=== PATIENT | male | born 1980 | race Caucasian/White ===

== ENCOUNTER 2024-08-15 21:09 | Inpatient (IN) ==
--- NOTE | 2024-08-15 21:33 | Emergency Department Note ---
History of Present Illness General Chief complaint: Illness Stated complaint: ORAL PAIN,FACE SWOLLEN,N/V,DIZZY,CONFUSION Time Seen by Provider: 08/15/24 21:19 History of Present Illness Maximum Pain Intensity: 8 This is a 44-year-old male presenting to the emergency department for evaluation of right-sided facial pain and swelling. Patient was seen earlier today for likely dental/oral infection. He was started on penicillin and given tramadol. Patient has taken 2 doses of the penicillin, but not any doses of the tramadol. Patient states over the past 2 to 3 hours he has developed significant swelling to the face and is having difficulty swallowing because of the pain. He has not had fever or chills. He rates his discomfort an 8/10. Home Medications Medication Instructions Recorded Confirmed Type cyclobenzaprine 10 mg tablet 10 mg PO Q8H PRN muscle spasm #21 12/15/22 12/17/22 Rx tabs cholecalciferol (vitamin D3) 125 125 mcg PO DAILY #30 caps 12/17/22 12/17/22 Rx mcg (5,000 unit) capsule penicillin V potassium 500 mg 500 mg PO BID 10 days #20 tabs 08/15/24 Rx tablet tramadol 50 mg tablet 50 mg PO BID PRN pain #11 tabs 08/15/24 Rx Allergies Allergy/AdvReac Type Severity Reaction Status Date / Time bee venom protein (honey bee) Allergy Severe SEVERE Verified 12/17/22 08:30 SWELLING AT SITES--SEE COMMENT cat dander Allergy Intermediate ITCHY Verified 12/17/22 08:30 EYES, SNEEZING, CONGESTION Past Med/Surg History Problem List (Updated 08/16/24 @ 04:04 by Cory Tomas PA-C) Dental abscess (Acute) Pain, dental (Acute) Foot pain, bilateral Athletes foot Hypertriglyceridemia Positive self-administered antigen test for COVID-19 Sinus infection Allergic rhinitis Unwanted fertility Sensorineural hearing loss (SNHL) of left ear with restricted hearing of right ear DDD (degenerative disc disease), lumbar Low back pain Shoulder pain, right FH ischemic heart disease Routine health maintenance Encounter for vasectomy counseling Hearing loss Lower back injury Obesity Medical History Hx of bronchitis 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 Surgical History History of hernia surgery Family History Mother Diabetes Coronary heart disease Dyslipidemia Heart disease Hypertension Myocardial infarction Allergies Bleeding disorder Father Colorectal cancer Hearing loss Other No family history of adverse response to anesthesia Social History Smoking Status: Never smoker Do You Dip or Chew Tobacco: No; Hx Alcohol Use: No Hx Substance Use: No Preferred Language: Lithuanian 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 Beliefs That Will Affect Care: None marital status: Current Living Situation: Spouse current occupational status: employed 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 Feels Safe at Home: Yes Safety Concerns: Feels Safe At This Time Review of Systems A total of 10 systems reviewed and were otherwise negative Physical Exam Vital Signs Vital Signs - 24 hr 08/15/24 21:13 08/15/24 21:50 08/15/24 22:09 Temperature 36.7 C Temperature Source Temporal Artery Scan Pulse Rate 108 H 108 H 107 H Respiratory Rate 18 19 Blood Pressure 153/98 H 166/109 H Blood Pressure Mean 116 128 Pulse Oximetry 96 96 Sepsis Recent Fever Within 48 Hours No Sepsis New/Unexplained Change in Mental Status No Sepsis Action Taken by Nursing No Action Required 08/15/24 23:30 08/16/24 01:00 Temperature Temperature Source Pulse Rate 100 H 102 H Respiratory Rate 23 24 Blood Pressure 175/104 H 183/104 H Blood Pressure Mean 127 128 Pulse Oximetry 95 95 Sepsis Recent Fever Within 48 Hours Sepsis New/Unexplained Change in Mental Status Sepsis Action Taken by Nursing VITALS: Vitals are noted on the nurse's note and reviewed by myself. Vital signs stable. GENERAL: Well-developed, well-nourished, white male, who is moderately uncomfortable but overall pleasant HEAD: Normocephalic atraumatic. MOUTH: Mucous membranes moist. Tonsils are not enlarged. Dentition overall fair repair. There is notable edema to the right side face and submandible region. No gross abscess evident on exam. No distinct evidence of Bernardino's. NECK: Supple without nuchal rigidity. No lymphadenopathy. No thyromegaly. Cervical spine is nontender. HEART: Regular rate and rhythm without murmurs gallops or rubs. LUNGS: Clear to auscultation bilaterally without wheezes, rales or rhonchi. No retractions or accessory muscle use. Course Administered Medications Acetaminophen (Ofirmev) 1,000 mg in 100 mls @ 400 mls/hr IV Q8H PRN PRN Reason: Pain- 1st line Stop: 08/19/24 02:15 Last Infusion: 08/16/24 02:55 Dose: Infused Documented By: Admin: 08/16/24 02:40 Dose: 400 mls/hr Documented By: JAYDA Lactated Ringer's (Lr) 1,000 mls @ 125 mls/hr IV .Q8H DANAY Stop: 08/16/24 11:44 Last Admin: 08/16/24 02:40 Dose: 125 mls/hr Documented By: JAYDA Discontinued Medications Ampicillin Sodium/Sulbactam Sodium (Unasyn) 3,000 mg in 100 mls @ 200 mls/hr IV NOW STA Stop: 08/15/24 21:59 Last Infusion: 08/15/24 22:44 Dose: Infused Documented By: Admin: 08/15/24 22:08 Dose: 200 mls/hr Documented By: NICCI Sodium Chloride (Nss) 1,000 mls @ 999 mls/hr IV .Q1H1M DANAY Stop: 08/15/24 22:45 Last Infusion: 08/15/24 22:44 Dose: Infused Documented By: Admin: 08/15/24 21:52 Dose: 999 mls/hr Documented By: NICCI Acetaminophen (Ofirmev) 1,000 mg in 100 mls @ 400 mls/hr IV NOW STA Stop: 08/15/24 21:45 Last Infusion: 08/15/24 22:08 Dose: Infused Documented By: Admin: 08/15/24 21:52 Dose: 400 mls/hr Documented By: NICCI Sodium Chloride (Nss) 1,000 mls @ 999 mls/hr IV .Q1H1M DANAY Stop: 08/16/24 03:12 Last Admin: 08/16/24 02:31 Dose: Not Given Documented By: Infusion: 08/16/24 02:30 Dose: Infused Documented By: MLAna Admin: 08/16/24 01:19 Dose: 999 mls/hr Documented By: NICCI Ioversol (Optiray 320 100ml) 94 ml IV ONCE ONE Stop: 08/15/24 22:50 Last Admin: 08/15/24 22:49 Dose: 94 ml Documented By: YOVANI Ketorolac Tromethamine (Ketorolac 30 Mg/Ml Vial) 30 mg IV NOW STA Stop: 08/16/24 00:28 Last Admin: 08/16/24 00:39 Dose: 30 mg Documented By: NICCI Medical Decision Making Differential Diagnosis Differential diagnosis includes: Etiologies such as cellulitis, abscess, osteomyelitis, MRSA infection, DVT, necrotizing fasciitis, dermatitis, drug eruption, as well as others were entertained Laboratory Data 08/15/24 21:51 08/15/24 21:51 Lab Results 08/15/24 Range/Units 21:51 WBC 24.00 H (4.8-10.8) K/ul RBC 4.91 (4.70-6.10) M/uL Hgb 15.2 (14.0-18.0) g/dl Hct 42.5 (42.0-52.0) % MCV 86.6 (80.0-100.0) fL MCH 31.0 (25.0-34.0) pg MCHC 35.8 (32.0-36.0) g/dL RDW Std Deviation 40.0 (36.4-46.3) fL RDW Coeff of Joseph 12.7 (11.5-14.5) % Plt Count 288 (130-400) K/uL MPV 10.0 (9.4-12.4) fL Immature Gran % (Auto) 1.0 % Neut % (Auto) 89.3 % Lymph % (Auto) 3.4 % Labette % (Auto) 6.0 % Eos % (Auto) 0.1 % Baso % (Auto) 0.2 % Neut # (Auto) 21.46 H (1.40-6.50) K/uL Lymph # (Auto) 0.81 L (1.20-3.40) K/uL Labette # (Auto) 1.44 H (0.11-0.59) K/uL Eos # (Auto) 0.02 (0.00-0.50) K/uL Baso # (Auto) 0.04 (0.00-0.20) K/uL Immature Gran # (Auto) 0.23 H (0.01-0.20) K/uL Sodium 140 (136-145) mmol/L Potassium 4.3 (3.5-5.1) mmol/L Chloride 108 H (98-107) mmol/L Carbon Dioxide 22 (21-32) mmol/L Anion Gap 10 (3-11) BUN 13 (6-23) mg/dl Creatinine 1.17 (0.6-1.4) mg/dl Est Cr Clr Drug Dosing 92.9 ml/min Est GFR ( Amer) 87.4 ml/min Est GFR (Non-Af Amer) 75.4 ml/min BUN/Creatinine Ratio 11.1 (10-20) Glucose 117 H (70-99(Fasting)) mg/dl Calcium 9.4 (8.6-10.3) mg/dl Total Bilirubin 0.9 (0.2-1.0) mg/dl AST 19 (13-39) U/L ALT 18 (7-52) U/L Alkaline Phosphatase 49 (34-104) U/L Total Protein 8.4 H (6.0-8.3) gm/dl Albumin 4.9 (3.4-5.0) gm/dl Globulin 3.5 (2.5-4.0) gm/dl Albumin/Globulin Ratio 1.4 (0.9-2) Imaging Data Radiologist's Impression: Soft Tissue Neck CT 08/15/24 21:30 Exam(s): CT NECK With Contrast IV Amt: 94ml EXAM: CT Neck With Intravenous Contrast CLINICAL HISTORY: Reason for exam: Eval for dental infection/facial edema. TECHNIQUE: Axial computed tomography images of the neck with intravenous contrast. Automated exposure control was utilized for the study. A dose lowering technique was utilized adhering to the principles of ALARA. CONTRAST: Patient received 94ml of IV contrast COMPARISON: CT cervical spine: 12/14/2022 FINDINGS: Oropharynx: Unremarkable. No significant tonsillar enlargement. No peritonsillar abscess. Hypopharynx: Unremarkable. Larynx: Unremarkable. Normal epiglottis. Trachea: Unremarkable. Retropharyngeal space: Unremarkable. Submandibular/parotid glands: Unremarkable. Glands are normal in size. Thyroid: Unremarkable. No enlarged or calcified nodules. Bones/joints: No acute fracture. Soft tissues: Unremarkable. Vasculature: No acute findings. Lymph nodes: There are several mildly enlarged right anterior cervical lymph nodes. Dental: There is a 1.9 x 0.9 x 2.0 cm abscess adjacent to the right mandible and right mandibular molars. The abscess collection is both medial and lateral to the right mandible. Lung apices: Unremarkable as visualized. IMPRESSION: There is a small 1.9 x 0.9 x 2.0 cm abscess adjacent to the right mandible and right mandibular molars. The abscess collection is both medial and lateral to the right mandible. Electronically signed by: Aden Meyer MD 08/16/24 01:01 AM [facility] Narrative Physical exam and history were performed. Nursing notes, EMR, and Medication List were personally reviewed. No social concerns were identified as barriers to patients care. Patient appears to have worsening pain and swelling of his right side face. The swelling is quite notable. Patient airway is not compromised. IV access was established and labs were obtained. He was hydrated with normal saline and given IV Toradol, IV Tylenol, and IV Unasyn. Patient was sent to CT scan for imaging of his symptoms. Patient's blood work is as above and was reviewed. He does have a markedly elevated white count of 24,000. He does not have significant anemia, or gross electrolyte imbalance. Transaminases are not diagnostic. CT scan does show small abscess per my and radiology interpretation. Overall the patient does not appear well for discharge. His symptoms have rapidly worsened over the past 12 hours, and escalation of care is felt to be necessary. Case was discussed with the on-call hospitalist team, who agreed to evaluate the patient. Please see their dictation for further patient course, plan, and disposition. The chart was completed utilizing [employer] Speech Voice Recognition Software. Grammatical errors, random word insertions, pronoun errors, and incomplete sentences are an occasional consequence of this system due to software limitations, ambient noise, and hardware issues. Any formal questions or concerns about the content, text, or information contained within the body of this dictation should be directly addressed to the provider for clarification. Impression & Plan Dental abscess Discharge Plan Visit Data Chief Complaint: Illness Stated Complaint: ORAL PAIN,FACE SWOLLEN,N/V,DIZZY,CONFUSION ED Provider: Wilfred Mosher ED Midlevel Provider: Cory Tomas Discharge Problem: Dental abscess Patient Disposition: Admitted As Inpatient Discharge Instructions Interventions: ED Discharge Assessment Last Done: 08/16/24 01:56
[2024-08-15] MEDS: SODIUM CHLORIDE 0.9% 1,000 ML IV SCH (21:52)
[2024-08-15] MEDS: ACETAMINOPHEN 1,000 MG/100 ML VIAL IV STA (21:52)
[2024-08-15] MEDS: AMPICILLIN/SULBACTAM SOD 3,000 MG/100 ML BAG IV STA (22:08)
[2024-08-15 22:11] LABS: Hematocrit (blood only) 42.5 % (42.0-52.0); Hemoglobin 15.2 g/dl (14.0-18.0); Mean Corpuscular Hgb Conc 35.8 g/dL (32.0-36.0); Mean Corpuscular Volume 86.6 fL (80.0-100.0); Platelet Count 288 K/uL (130-400); RDW Coefficient of Variation 12.7 % (11.5-14.5); Red Blood Count 4.91 M/uL (4.70-6.10)
[2024-08-15 22:27] LABS: Albumin Globulin Ratio 1.4 (0.9-2); Albumin Level 4.9 gm/dl (3.4-5.0); BUN Creatinine Ratio 11.1 (10-20); Bilirubin,Total 0.9 mg/dl (0.2-1.0); Calcium 9.4 mg/dl (8.6-10.3); Creatinine Clr Calc Pharmacy 92.9 ml/min; Est GFR (African American) 87.4 ml/min; Est GFR (Non-African American) 75.4 ml/min; Globulin 3.5 gm/dl (2.5-4.0); Potassium 4.3 mmol/L (3.5-5.1); Total Protein 8.4 gm/dl (6.0-8.3)
[2024-08-15 22:32] LABS: Basophils # (auto) 0.04 K/uL (0.00-0.20); Basophils % (auto) 0.2 %; Eosinophils # (auto) 0.02 K/uL (0.00-0.50); Eosinophils % (auto) 0.1 %; Immature Granulocytes # (auto) 0.23 K/uL (0.01-0.20); Lymphocytes # (auto) 0.81 K/uL (1.20-3.40); Lymphocytes % (auto) 3.4 %; Monocytes # (auto) 1.44 K/uL (0.11-0.59); Neutrophils # (auto) 21.46 K/uL (1.40-6.50); Neutrophils % (auto) 89.3 %
[2024-08-15] MEDS: OPTIRAY 320 100ml IV ONE (22:49)
[2024-08-16] MEDS: KETOROLAC 30 MG/ML VIAL IV STA (00:39)
--- NOTE | 2024-08-16 01:02 | CT Scan Report ---
Exam(s): CT NECK With Contrast IV Amt: 94ml EXAM: CT Neck With Intravenous Contrast CLINICAL HISTORY: Reason for exam: Eval for dental infection/facial edema. TECHNIQUE: Axial computed tomography images of the neck with intravenous contrast. Automated exposure control was utilized for the study. A dose lowering technique was utilized adhering to the principles of ALARA. CONTRAST: Patient received 94ml of IV contrast COMPARISON: CT cervical spine: 12/14/2022 FINDINGS: Oropharynx: Unremarkable. No significant tonsillar enlargement. No peritonsillar abscess. Hypopharynx: Unremarkable. Larynx: Unremarkable. Normal epiglottis. Trachea: Unremarkable. Retropharyngeal space: Unremarkable. Submandibular/parotid glands: Unremarkable. Glands are normal in size. Thyroid: Unremarkable. No enlarged or calcified nodules. Bones/joints: No acute fracture. Soft tissues: Unremarkable. Vasculature: No acute findings. Lymph nodes: There are several mildly enlarged right anterior cervical lymph nodes. Dental: There is a 1.9 x 0.9 x 2.0 cm abscess adjacent to the right mandible and right mandibular molars. The abscess collection is both medial and lateral to the right mandible. Lung apices: Unremarkable as visualized. IMPRESSION: There is a small 1.9 x 0.9 x 2.0 cm abscess adjacent to the right mandible and right mandibular molars. The abscess collection is both medial and lateral to the right mandible. Electronically signed by: Aden Meyer MD 08/16/24 01:01 AM
[2024-08-16] MEDS: SODIUM CHLORIDE 0.9% 1,000 ML IV SCH (01:19)
--- NOTE | 2024-08-16 01:36 | History & Physical Report ---
Date of Service August 16, 2024 Assessment & Plan (1) Dental abscess: Plan: - CT with 1.9 x 0.9 x 2.0 cm abscess adjacent to the right mandible and right mandibular molar - Plan to continue with Unasyn - Consult Oral surgery-> NPO pending eval - 2L IVF in ED, continue LR@125ml/hr while NPO - Continue Unasyn - Pain regimen with Tylenol 1st line, Toradol 2nd line, morphine 3rd line Plan Diet: NPO pending oral surgery VTE Prophylaxis: SCD, defer chemical pending surgery eval Code: Full Dispo: Med Surg History of Present Illness Primary Care Provider: Danette Rivera MD 44 year old male without any significant past medical history presenting with dental infection. Pain started Friday evening. Was seen in the ED morning of 08/15- started on Penicillin V and tramadol prn for pain. Took Penicillin x 2, but continued to have increased pain and swelling which prompted him to come back in. In the ED labs notable to WBC= 24. Started on Unasyn and received 2L IVF. Does note some pain with swallowing which has improved since receiving Tylenol/Toradol. Denies trouble swallowing/throat swelling. Allergies Allergy/AdvReac Type Severity Reaction Status Date / Time bee venom protein (honey bee) Allergy Severe SEVERE Verified 12/17/22 08:30 SWELLING AT SITES--SEE COMMENT cat dander Allergy Intermediate ITCHY Verified 12/17/22 08:30 EYES, SNEEZING, CONGESTION Home Medications Medication Instructions Recorded Confirmed Type cyclobenzaprine 10 mg tablet 10 mg PO Q8H PRN muscle spasm #21 12/15/22 12/17/22 Rx tabs cholecalciferol (vitamin D3) 125 125 mcg PO DAILY #30 caps 12/17/22 12/17/22 Rx mcg (5,000 unit) capsule penicillin V potassium 500 mg 500 mg PO BID 10 days #20 tabs 08/15/24 Rx tablet tramadol 50 mg tablet 50 mg PO BID PRN pain #11 tabs 08/15/24 Rx Past Med/Surg History Problem List (Updated 08/16/24 @ 04:04 by Cory Tomas PA-C) Dental abscess (Acute) Pain, dental (Acute) Foot pain, bilateral Athletes foot Hypertriglyceridemia Positive self-administered antigen test for COVID-19 Sinus infection Allergic rhinitis Unwanted fertility Sensorineural hearing loss (SNHL) of left ear with restricted hearing of right ear DDD (degenerative disc disease), lumbar Low back pain Shoulder pain, right FH ischemic heart disease Routine health maintenance Encounter for vasectomy counseling Hearing loss Lower back injury Obesity Medical History Hx of bronchitis 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 Surgical History History of hernia surgery Family History Mother Diabetes Coronary heart disease Dyslipidemia Heart disease Hypertension Myocardial infarction Allergies Bleeding disorder Father Colorectal cancer Hearing loss Other No family history of adverse response to anesthesia Social History Smoking Status: Never smoker Do You Dip or Chew Tobacco: No; Hx Alcohol Use: No Hx Substance Use: No Preferred Language: Sinhala 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 Beliefs That Will Affect Care: None marital status: Current Living Situation: Spouse current occupational status: employed 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 Feels Safe at Home: Yes Safety Concerns: Feels Safe At This Time Review of Systems Review of Systems: As per above Physical Exam Physical Exam: Constitutional: well-appearing, no acute distress HEENT: NCAT, no conjunctival injection, some swelling right side of face, no tonsillar enlargement/throat swelling CV: regular rhythm, no murmur appreciated, extremities well-perfused, no LE edema Resp: CTABL, no wheezes/rales/rhonchi appreciated, no increased work of breathing MSK: no gross deformities appreciated Skin: warm, dry, no rash appreciated Neuro: alert, oriented, no focal neurologic deficit appreciated Results & Data Results & Data Vital Signs (Past 12 Hours) Vital Signs Temp Pulse Resp BP Pulse Ox 08/16/24 01:00 102 H 24 183/104 H 95 08/15/24 23:30 100 H 23 175/104 H 95 08/15/24 22:09 107 H 19 166/109 H 96 08/15/24 21:50 108 H 08/15/24 21:13 36.7 C 108 H 18 153/98 H 96 Supervising Physician Co-Signing Physician Notes Attending addendum: I have physically seen this patient, have supervised the medical residents activities, and agree with the H&P unless as otherwise noted. Assessment and Plan: Dental abscess- CT soft tissue neck shows 1.9 x 0.9 x 2 cm abscess medial and lateral to the right mandible Received 2 L normal saline bolus from the ED, Tylenol 1 g IV, Toradol 30 mg IV, and Unasyn 3 g IV x 1 Continue Unasyn 3 g IV every 6 hours N.p.o. Pain regimen with Tylenol, Toradol and morphine as noted Consult oral maxillofacial surgery Dr. Cabezas Resident Activity Tracking Resident Involvement: Resident Care Provided Care Provided: [facility]
[2024-08-16] MEDS: LACTATED RINGER'S 1,000 ML IV SCH ×4 (02:40→17:41)
[2024-08-16] MEDS: ACETAMINOPHEN 1,000 MG/100 ML VIAL IV PRN (02:40)
[2024-08-16] MEDS: AMPICILLIN/SULBACTAM SOD 3,000 MG/100 ML BAG IV SCH (05:21)
--- NOTE | 2024-08-16 05:54 | Billing Data ---
Date of Service August 16, 2024 Coding Level of Care Code 69345 INT INP/OBS CARE
[2024-08-16] MEDS: ALUMINUM/MAGNESIUM SUSP 30 ML UDC PO STA (05:58)
[2024-08-16] MEDS: KETOROLAC TROMETHAMINE 15 MG/ML VIAL IV PRN (06:01)
[2024-08-16 07:13] LABS: Basophils # (auto) 0.03 K/uL (0.00-0.20); Basophils % (auto) 0.2 %; Eosinophils # (auto) 0.01 K/uL (0.00-0.50); Eosinophils % (auto) 0.1 %; Hematocrit (blood only) 39.3 % (42.0-52.0); Hemoglobin 13.5 g/dl (14.0-18.0); Immature Granulocytes # (auto) 0.16 K/uL (0.01-0.20); Immature Granulocytes % (auto) 0.9 %; Lymphocytes # (auto) 1.08 K/uL (1.20-3.40); Lymphocytes % (auto) 5.8 %; Mean Corpuscular Hemoglobin 29.9 pg (25.0-34.0); Mean Corpuscular Hgb Conc 34.4 g/dL (32.0-36.0); Mean Corpuscular Volume 86.9 fL (80.0-100.0); Monocytes # (auto) 1.01 K/uL (0.11-0.59); Monocytes % (auto) 5.5 %; Neutrophils # (auto) 16.23 K/uL (1.40-6.50); Neutrophils % (auto) 87.5 %; Platelet Count 265 K/uL (130-400); RDW Coefficient of Variation 12.9 % (11.5-14.5); RDW Standard Deviation 40.8 fL (36.4-46.3); Red Blood Count 4.52 M/uL (4.70-6.10); White Blood Count 18.52 K/ul (4.8-10.8)
[2024-08-16 07:27] LABS: BUN Creatinine Ratio 15.3 (10-20); Calcium 8.4 mg/dl (8.6-10.3); Creatinine Clr Calc Pharmacy 127.9 ml/min; Est GFR (African American) 122.8 ml/min; Potassium 3.6 mmol/L (3.5-5.1)
--- NOTE | 2024-08-16 08:19 | Hospitalist Progress Note ---
Date of Service August 16, 2024 Assessment & Plan (1) Dental abscess: Plan: Presented to ER and dc on Pen V and tramadol for pain but came back due to increased pain/swelling WBC 24k, CT w/ 1.9 x 0.9 x 2.0 cm abscess adjacent to the right mandible and right mandibular molar s/p 2L IVF in ER, continued on LR @ 125cc/hr. BUN/Cr elevation Continues on Unasyn IV IVF decreased to 100cc/hr given BUN/Cr 13/0.85 WBC trending down NPO for possible I&D abscess with Dr Short. Consult pending (per patient not yet seen this morning Pain regimen w/ IV Tylenol, toradol, morphine as needed --Of note, having some EPIGASTRIC discomfort, got Toradol IV this morning. Further discussion with patient regarding pain control at home and reporting taking 800mg ibuprofen q4h prior to admission. --No hx GI bleed/ulcer but will place on PPI IV BID for prophylaxis at this time. Hgb 15.2 on admission and currently 13.5 but was given >2L IVF and suspect dilutional but will need to continue to monitor. --- Add PO tramadol/oxycodone once able to take PO for oral option. Would avoid further NSAIDs for now given excessive ibuprofen use Antiemetics w/ zofran as needed Monitor labs/exam in AM Plan Diet: NPO pending oral surgery VTE Prophylaxis: SCD, defer chemical pending surgery eval but given concerns for NSAID use/epigastric pain will avoid for now. PPI IV BID/convert to PO in AM/once no longer PO Admission and Anticipated Discharge Date Admission Date: August 16, 2024 Subjective BRIDGE NOTE: ADMIT AFTER MIDNIGHT Evaluated in room 360-1, laying in bed. Just medicated for pain, able to handle his saliva/secretions but does feel swollen. Breathing stable and on room air. Denies wanting something more for pain at present as just got something and wanting to see how it works. Denies CP. Does have abdominal discomfort/reflux symptoms. Epigastric discomfort. Inquired if taking NSAIDs/ibuprofen for pain and he endorses taking ibuprofen, about 800mg every 4 hours. No hx gastric ulcer/GI bleeding and was given maalox last night with some improvement but coming back and discussed will order protonix given NSAID use and monitor. To alert of any worsening pain/ineffectiveness with protonix. Not yet seen by Dr Cabezas but remains NPO until eval. Had not been able to get into dentist Physical Exam 2 Physical Exam: Constitutional: well-appearing, no acute distress HEENT: right facial swelling, +lymphadenopathy, uvula midline/no stridor, able to swallow without issue but having some discomfort from swelling. appears w/ abscess to right posterior region of molars, no active drainage but very tender CV: regular rhythm, no murmur appreciated, extremities well-perfused, no LE edema Resp: CTABL, no wheezes/rales/rhonchi appreciated, no increased work of breathing GI:+BS, slight distension, mild epigastric tenderness to palpation MSK: no gross deformities appreciated Skin: warm, dry, no rash appreciated Neuro: alert, oriented, no focal neurologic deficit appreciated, fatigued appearing Results & Data Results & Data Vital Signs (Past 12 Hours) Vital Signs Temp Pulse Pulse Resp BP BP Pulse Ox 08/16/24 07:11 36.7 C 96 H 16 143/96 H 96 08/16/24 06:34 96 H 16 133/81 97 08/16/24 02:27 37.4 C 90 16 163/96 H 97 08/16/24 02:18 37.4 C 106 H 16 153/95 H 97 08/16/24 01:00 102 H 24 183/104 H 95 08/15/24 23:30 100 H 23 175/104 H 95 08/15/24 22:09 107 H 19 166/109 H 96 08/15/24 21:50 108 H 08/15/24 21:13 36.7 C 108 H 18 153/98 H 96 O2 Del Method 08/16/24 07:11 Room Air 08/16/24 06:34 Room Air 08/16/24 02:27 Room Air 08/16/24 02:18 Room Air 08/16/24 01:00 08/15/24 23:30 08/15/24 22:09 08/15/24 21:50 08/15/24 21:13 Laboratory Results 08/16/24 06:36 08/16/24 06:36 Diagnostic Findings Soft Tissue Neck CT 08/15/24 21:30 Exam(s): CT NECK With Contrast IV Amt: 94ml EXAM: CT Neck With Intravenous Contrast CLINICAL HISTORY: Reason for exam: Eval for dental infection/facial edema. TECHNIQUE: Axial computed tomography images of the neck with intravenous contrast. Automated exposure control was utilized for the study. A dose lowering technique was utilized adhering to the principles of ALARA. CONTRAST: Patient received 94ml of IV contrast COMPARISON: CT cervical spine: 12/14/2022 FINDINGS: Oropharynx: Unremarkable. No significant tonsillar enlargement. No peritonsillar abscess. Hypopharynx: Unremarkable. Larynx: Unremarkable. Normal epiglottis. Trachea: Unremarkable. Retropharyngeal space: Unremarkable. Submandibular/parotid glands: Unremarkable. Glands are normal in size. Thyroid: Unremarkable. No enlarged or calcified nodules. Bones/joints: No acute fracture. Soft tissues: Unremarkable. Vasculature: No acute findings. Lymph nodes: There are several mildly enlarged right anterior cervical lymph nodes. Dental: There is a 1.9 x 0.9 x 2.0 cm abscess adjacent to the right mandible and right mandibular molars. The abscess collection is both medial and lateral to the right mandible. Lung apices: Unremarkable as visualized. IMPRESSION: There is a small 1.9 x 0.9 x 2.0 cm abscess adjacent to the right mandible and right mandibular molars. The abscess collection is both medial and lateral to the right mandible. Electronically signed by: Aden Meyer MD 08/16/24 01:01 AM [facility] Care Time/CCT Total # of Minutes Spent Total Time Spent with Patient: Total time spent is greater than 50% in coordination of care (as documented) at patient's floor/unit and/or counseling patient: Coding Level of Care Code None Diagnoses Dental abscess K04.7
[2024-08-16] MEDS ORDERED: ONDANSETRON INJ 2 MG/ML 2 ML VIAL IV PRN ×2 (08:52→14:54)
[2024-08-16] MEDS: MoRPHine SULFATE 2 MG/ML CARP IV PRN (08:56)
--- NOTE | 2024-08-16 10:56 | Oral/Maxillofacial Consult ---
Date of Consultation August 16, 2024 Assessment & Plan (1) Dental abscess: (2) Pain, dental: (3) Cellulitis, mouth floor: (4) Facial infection: (5) Carious teeth: History of Present Illness Attending Physician: Pooja Mathew MD History of Present Illness Oral Maxillofacial Surgery Exam Present Complaint: I have pain/swelling/drainage from my infected teeth. Symptoms have been ongoing for a while. Not able to control pain with 800 mg Tylenol q 6hrs can`t open mouth trismus Oral Exam: Finding--Swollen right side of the face, temporal area and submandibular area, floor of the mouth (right) tender gingival tissue with deep pocket formation.Teeth are grossly infected and removal is clinical indicated. 1,2,15,16,19,30,31 + I&D right submandibular, masseter space and temporal space Imaging: CT scan The CT was reviewed, there were no abnormal findings other then the fractured and carious teeth. The TMJ are well positioned and no evidence of bony pathology. The sinus, supporting bone all WNL Evaluated the nerve/sinus relationship to the roots of the teeth. The following teeth need removal 1,2,15,16,19,30,31 Exam(s): CT NECK With Contrast EXAM: CT Neck With Intravenous Contrast CLINICAL HISTORY: Reason for exam: Eval for dental infection/facial edema. FINDINGS: Oropharynx: Unremarkable. No significant tonsillar enlargement. No peritonsillar abscess. Hypopharynx: Unremarkable. Larynx: Unremarkable. Normal epiglottis. Trachea: Unremarkable. Retropharyngeal space: Unremarkable. Submandibular/parotid glands: Unremarkable. Glands are normal in size. Thyroid: Unremarkable. No enlarged or calcified nodules. Bones/joints: No acute fracture. Soft tissues: Unremarkable. Vasculature: No acute findings. Lymph nodes: There are several mildly enlarged right anterior cervical lymph nodes. Dental: There is a 1.9 x 0.9 x 2.0 cm abscess adjacent to the right mandible and right mandibular molars. The abscess collection is both medial and lateral to the right mandible. Lung apices: Unremarkable as visualized. IMPRESSION: There is a small 1.9 x 0.9 x 2.0 cm abscess adjacent to the right mandible and right mandibular molars. The abscess collection is both medial and lateral to the right mandible. Soft tissue: The floor of the mouth, submandibular, masseter and temporal space are infected. The tongue, hard/soft palate, posterior pharyngeal area all with in normal limits, no pathology or abnormal findings noted. Oral Care: Overall oral care is fair Occlusion: Class I TMJ exam: Due to trismus not able to evaluate Periodontal exam: There is evidence of early periodontal pathology. Head/Neck exam: Neck is supple, FROM, Able to extend and flex neck with some difficulty due to infection/swelling. no masses, no abnormalities, no airway issues, no evidence of sleep apnea. Treatment Plan: Set up with general anesthesia in hospital due to complexity of the procedure I reviewed the treatment plan and consent with the patient. Understanding was expressed. Time was given for questions regarding the surgery, risks and post op care. Discussed alternative to treatment--procedure as planned, Do not do surgery The following teeth are decayed and fractured and removal is indicated SAMUEL:1,2 ,15,16,19,30,31 I&D right facial spaces=Temporal,submandibular, floor of the mouth and masseter spaces Risks discussed: Bleeding,Pain,swelling,infection, dry socket, delayed healing, nerve injury to face,lips,tongue,chin area which could be permanent (rare). TMJ, jaw stiffness, change in bite (rare), ear pain (referred). Sinus problems like fistula or infection. Need to leave a small root fragment in place to avoid injury to nerve or sinus. Relationship of teeth to nerve/sinus and risk of jaw fracture. Home care reviewed: tooth brushing, rinsing, follow up care with Dr Cabezas. diet=[id number] dental. Discussed activity level, driving/work while on Rx pain Meds. need to follow up for future dental care Surgery to be set up this afternoon as Prateek is NPO Allergies Allergy/AdvReac Type Severity Reaction Status Date / Time bee venom protein (honey bee) Allergy Severe SEVERE Verified 08/16/24 08:49 SWELLING AT SITES--SEE COMMENT cat dander Allergy Intermediate ITCHY Verified 08/16/24 08:49 EYES, SNEEZING, CONGESTION Home Medications Medication Instructions Recorded Confirmed Type acetaminophen 500 mg tablet 500 mg PO Q6H PRN Pain/Fever 08/16/24 08/16/24 History ibuprofen 200 mg tablet 200 mg PO Q6H PRN Pain/Fever 08/16/24 08/16/24 History Patient History Medical History Hx of bronchitis 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 Surgical History History of hernia surgery Family History Mother Diabetes Coronary heart disease Dyslipidemia Heart disease Hypertension Myocardial infarction Allergies Bleeding disorder Father Colorectal cancer Hearing loss Other No family history of adverse response to anesthesia Social History Smoking Status: Never smoker Do You Dip or Chew Tobacco: No; Hx Alcohol Use: No Hx Substance Use: No Preferred Language: [place]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 Beliefs That Will Affect Care: None marital status: Current Living Situation: Spouse current occupational status: employed 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 [employer] Feels Safe at Home: Yes Safety Concerns: Feels Safe At This Time Results & Data Vital Signs (Past 12 Hours) Vital Signs Temp Pulse Pulse Resp BP BP Pulse Ox 08/16/24 07:11 36.7 C 96 H 16 143/96 H 96 08/16/24 06:34 96 H 16 133/81 97 08/16/24 02:27 37.4 C 90 16 163/96 H 97 08/16/24 02:18 37.4 C 106 H 16 153/95 H 97 08/16/24 01:00 102 H 24 183/104 H 95 08/15/24 23:30 100 H 23 175/104 H 95 O2 Del Method 08/16/24 07:11 Room Air 08/16/24 06:34 Room Air 08/16/24 02:27 Room Air 08/16/24 02:18 Room Air 08/16/24 01:00 08/15/24 23:30 PG Care Time/CCT Total # of Minutes Spent Total Time Spent with Patient: Total time spent is greater than 50% in coordination of care (as documented) at patient's floor/unit and/or counseling patient: Coding Level of Care Code 71500 IN/OBS CONSULT LVL 3,45M Diagnoses Dental abscess K04.7 Pain, dental K08.89 Cellulitis, mouth floor K12.2 Facial infection L08.9 Carious teeth K02.9
[2024-08-16] MEDS: PANTOprazole 40 MG in SYRINGE 0 ML IV ONE (11:48)
--- NOTE | 2024-08-16 14:06 | Anesthesiology Consultation ---
Date of Service August 16, 2024 Assessment & Plan (1) Encounter for pre-operative examination: Chart Review Chart Review: Acceptable Risk for Surgery History Surgery Operation Date: 08/16/24 11:30 Proposed Procedures p Incision and Drainage Right Face - Joseph R ZOLTAN Cabezas s Teeth Extraction x7 - Joseph Cabezas DMD Height/Weight Height: 5 ft 8 in Weight: 101.2 kg Allergies Allergy/AdvReac Type Severity Reaction Status Date / Time bee venom protein (honey bee) Allergy Severe SEVERE Verified 08/16/24 08:49 SWELLING AT SITES--SEE COMMENT cat dander Allergy Intermediate ITCHY Verified 08/16/24 08:49 EYES, SNEEZING, CONGESTION Medications Home Medications Medication Instructions Recorded Confirmed Last Taken acetaminophen 500 mg tablet 500 mg PO Q6H PRN Pain/Fever 08/16/24 08/16/24 08/15/24 ibuprofen 200 mg tablet 200 mg PO Q6H PRN Pain/Fever 08/16/24 08/16/24 08/15/24 Active Medications Generic Name Dose Route Start Last Admin Trade Name Freq PRN Reason Stop Dose Admin Ampicillin Sodium/Sulbactam Sodium 3,000 mg in 100 mls @ 200 mls/hr 08/16/24 06:00 08/16/24 12:42 Unasyn IV 08/26/24 05:59 Infused Q6H DANAY Infusion Acetaminophen 1,000 mg in 100 mls @ 400 mls/hr 08/16/24 02:16 08/16/24 12:42 Ofirmev IV 08/19/24 02:15 Infused Q8H PRN Infusion Pain- 1st line Lactated Ringer's 1,000 mls @ 100 mls/hr 08/16/24 08:30 08/16/24 13:32 Lr IV 09/15/24 08:29 100 mls/hr .Q10H DANAY Administration Ketorolac Tromethamine 15 mg 08/16/24 02:16 08/16/24 06:01 Ketorolac Tromethamine 15 Mg/Ml Vial IV 08/21/24 02:15 15 mg Q6H PRN Administration Pain 2nd line Morphine Sulfate 2 mg 08/16/24 02:16 08/16/24 08:56 Morphine Sulfate 2 Mg/Ml Carp IV 08/30/24 02:15 2 mg Q6H PRN Administration Pain 3rd line Past Medical History Medical History Hx of bronchitis 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 Past Family History Family History Mother Diabetes Coronary heart disease Dyslipidemia Heart disease Hypertension Myocardial infarction Allergies Bleeding disorder Father Colorectal cancer Hearing loss Other No family history of adverse response to anesthesia Past Surgical History Surgical History History of hernia surgery Social History Smoking Status: Never smoker Do You Dip or Chew Tobacco: No Hx Alcohol Use: No Hx Substance Use: No Physical Exam Vital Signs Last Vital Signs Temp 36.7 C 08/16/24 07:11 Pulse 96 H 08/16/24 07:11 Resp 16 08/16/24 07:11 BP 143/96 H 08/16/24 07:11 Pulse Ox 96 08/16/24 07:11 O2 Del Method Room Air 08/16/24 07:11 Testing Laboratory Results 08/16/24 06:36 08/16/24 06:36 08/16/24 10:20 POC Glucose 98
[2024-08-16] MEDS ORDERED: MIDAZOLAM HCL 1 MG/ML 2ML VIAL ONE (14:22)
[2024-08-16] MEDS ORDERED: fentaNYL citrate PF 100 MCG/2 ML VIAL ONE ×2 (14:22→15:27)
[2024-08-16] MEDS ORDERED: DEXAMETHASONE SOD INJ 4 MG/ML VIAL ONE (14:30)
[2024-08-16] MEDS ORDERED: LIDOCAINE 2% 2 ML VIAL/AMP(20MG/ML) INFIL ONE (14:30)
[2024-08-16] MEDS ORDERED: PROPOFOL IV EMULSION 10 MG/ML 20 ML VIAL IV ONE (14:30)
[2024-08-16] MEDS ORDERED: ONDANSETRON INJ 2 MG/ML 2 ML VIAL ONE (14:30)
[2024-08-16] MEDS ORDERED: GLYCOPYRROLATE 0.2 MG/ML VIAL ONE ×3 (14:30→15:42)
[2024-08-16] MEDS ORDERED: ROCURONIUM BROMIDE 10 MG/ML 5 ML VIAL IV ONE (14:30)
--- NOTE | 2024-08-16 14:48 | History & Physical Bridge Note ---
Date of Service August 16, 2024 History & Physical Bridge Note I have examined the patient, reviewed the History & Physical and in the interval since the performance of the History & Physical I have noted the following changes of clinical significance: no changes noted. OK for the planned I&D and extractions right and left sides
[2024-08-16] MEDS ORDERED: fentaNYL citrate PF 100 MCG/2 ML VIAL IV PRN (14:54)
[2024-08-16] MEDS ORDERED: ePHEDrine sulfate 50 MG/ML AMP IV PRN (14:54)
[2024-08-16] MEDS ORDERED: ATROPINE SULFATE 0.1 MG/ML 10ML SYR IV PRN (14:54)
[2024-08-16] MEDS: CHLORHEXIDINE GLUCONATE 0.12% 480 ML MT ONE (15:30)
[2024-08-16] MEDS ORDERED: PHENYLEPHRINE 100MCG/ML 10ML SYR IV ONE (15:31)
[2024-08-16] MEDS ORDERED: diphenhydrAMINE 50 MG/ML VIAL ONE (15:36)
[2024-08-16] MEDS ORDERED: NEOSTIGMINE METHYLSULFATE 1 MG/ML 10ML VIAL ONE (15:42)
[2024-08-16] MEDS ORDERED: KETOROLAC 30 MG/ML VIAL ONE (15:45)
[2024-08-16] MEDS: BUPIVACAINE/EPINEPHRINE 0.5% 1:200,000 1.8 ML CARP ONE (15:49)
--- NOTE | 2024-08-16 16:12 | Post Operative Brief Note ---
PG Immediate Post Op with CF Date of Surgery August 16, 2024 Pre & Post Diagnosis Operation Date: 08/16/24 11:30 Pre-Op Diagnosis: Dental abscess, pain, dental, cellulitis-mouth floor, facial infection, carious teeth Post-Op Diagnosis: Dental abscess, pain, dental, cellulitis-mouth floor, facial infection, carious teeth I identified the patient and participated in the time-out.: Yes Procedure Operation Date: 08/16/24 11:30 Actual Procedures p Incision and Drainage Right Face - Joseph Cabezas DMD s Teeth Extraction x7 - Joseph Cabezas DMD Surgeon Joseph Cabezas DMD Shank Stapler none Estimated Blood Loss 5 Findings Consistent with Post-Op Diagnosis Infection right floor of mouth and temporal fossa area Specimens Specimen Description: culture #1 floor of mouth submandibular area right side, aerobic, aerobic, gram stain Anesthesia Type General Complications none Disposition Accompanied Patient To Recovery: Yes
--- NOTE | 2024-08-16 17:04 | Anesthesiology Progress Note ---
Date of Service August 16, 2024 Anesthesia Post Procedure Vital Signs Vital Signs: Temp Pulse Pulse Pulse Resp BP BP 08/16/24 16:55 104 H 24 139/90 08/16/24 16:45 106 H 26 H 148/95 H 08/16/24 16:35 101.1 F H 105 H 25 H 140/84 08/16/24 16:25 101 H 25 H 139/91 08/16/24 16:15 107 H 26 H 150/101 H 08/16/24 16:08 100.2 F H 108 H 25 H 147/88 H 08/16/24 14:51 99.9 F H 101 H 20 154/101 H 08/16/24 07:11 98.1 F 96 H 16 143/96 H 08/16/24 06:34 96 H 16 133/81 08/16/24 02:27 99.3 F 90 16 163/96 H 08/16/24 02:18 99.3 F 106 H 16 153/95 H 08/16/24 01:00 102 H 24 183/104 H 08/15/24 23:30 100 H 23 175/104 H 08/15/24 22:09 107 H 19 166/109 H 08/15/24 21:50 108 H 08/15/24 21:13 98.1 F 108 H 18 153/98 H Pulse Ox O2 Del Method O2 Flow Rate 08/16/24 16:55 92 Room Air 08/16/24 16:45 93 Room Air 08/16/24 16:35 96 Oxymask 2 08/16/24 16:25 99 Oxymask 4 08/16/24 16:15 99 Oxymask 6 08/16/24 16:08 99 Oxymask 6 08/16/24 14:51 96 Room Air 08/16/24 07:11 96 Room Air 08/16/24 06:34 97 Room Air 08/16/24 02:27 97 Room Air 08/16/24 02:18 97 Room Air 08/16/24 01:00 95 08/15/24 23:30 95 08/15/24 22:09 96 08/15/24 21:50 08/15/24 21:13 96 Pain Intensity Left Mouth: Pain Intensity: 8 Right Face: Pain Intensity: 6 Right Cheek: Pain Intensity: 8 Transfer of Care Handoff Completed per policy Notes Mental Status: alert / awake / arousable and participated in evaluation Patient Amnestic to Procedure: Yes Nausea / Vomiting: adequately controlled Pain: adequately controlled Airway Patency, RR, SpO2: stable & adequate BP & HR: stable & adequate Hydration State: stable & adequate Anesthetic Complications: no major complications apparent and Pt Satisfied with anesthetic care
[2024-08-16] MEDS: FAMOTIDINE 20MG IV PUSH 20 MG/5 ML SYR IV STA (18:03)
[2024-08-16] MEDS: ACETAMINOPHEN 1,000 MG/100 ML VIAL IV STA (18:25)
[2024-08-16 19:48] VITALS: RESP 16
[2024-08-16] MEDS: SUCRALFATE 1 GM/10 ML UDC PO SCH (20:57)
[2024-08-16] MEDS: PANTOprazole 40 MG in SYRINGE 0 ML IV SCH (20:57)
[2024-08-17 07:56] LABS: Basophils # (auto) 0.03 K/uL (0.00-0.20); Basophils % (auto) 0.2 %; Hematocrit (blood only) 37.6 % (42.0-52.0); Hemoglobin 12.9 g/dl (14.0-18.0); Immature Granulocytes # (auto) 0.11 K/uL (0.01-0.20); Immature Granulocytes % (auto) 0.6 %; Lymphocytes # (auto) 0.91 K/uL (1.20-3.40); Lymphocytes % (auto) 5.2 %; Mean Corpuscular Hemoglobin 30.1 pg (25.0-34.0); Mean Corpuscular Hgb Conc 34.3 g/dL (32.0-36.0); Mean Corpuscular Volume 87.6 fL (80.0-100.0); Mean Platelet Volume 9.6 fL (9.4-12.4); Monocytes # (auto) 0.86 K/uL (0.11-0.59); Monocytes % (auto) 4.9 %; Neutrophils # (auto) 15.48 K/uL (1.40-6.50); Neutrophils % (auto) 89.1 %; Platelet Count 260 K/uL (130-400); RDW Standard Deviation 41.7 fL (36.4-46.3); Red Blood Count 4.29 M/uL (4.70-6.10); White Blood Count 17.39 K/ul (4.8-10.8)
[2024-08-17 08:15] LABS: BUN Creatinine Ratio 24.2 (10-20); Calcium 8.5 mg/dl (8.6-10.3); Creatinine Clr Calc Pharmacy 119.4 ml/min; Est GFR (African American) 118.4 ml/min; Est GFR (Non-African American) 102.1 ml/min; Potassium 3.9 mmol/L (3.5-5.1)
[2024-08-17] MEDS: ACETAMINOPHEN 1,000 MG/100 ML VIAL IV PRN (08:16)
--- NOTE | 2024-08-17 18:38 | Hospitalist Progress Note ---
Date of Service August 17, 2024 Assessment & Plan (1) Dental abscess: Plan: Presented to ER and dc on Pen V and tramadol for pain but came back due to increased pain/swelling WBC 24k, CT w/ 1.9 x 0.9 x 2.0 cm abscess adjacent to the right mandible and right mandibular molar s/p 2L IVF in ER, continued on LR @ 125cc/hr. BUN/Cr elevation Continues on Unasyn IV IVF decreased to 100cc/hr given BUN/Cr 13/0.85 WBC trending down Had I&D right face with 7 teeth extracted on 08/16/[address] Cabezas. Pain regimen w/ IV Tylenol, toradol, morphine as needed --Of note, having some EPIGASTRIC discomfort, got Toradol IV this morning. Further discussion with patient regarding pain control at home and reporting taking 800mg ibuprofen q4h prior to admission. --No hx GI bleed/ulcer but will place on PPI IV BID for prophylaxis at this time. Hgb 15.2 on admission and currently 13.5 but was given >2L IVF and suspect dilutional but will need to continue to monitor. --- Add PO tramadol/oxycodone once able to take PO for oral option. Would avoid further NSAIDs for now given excessive ibuprofen use Antiemetics w/ zofran as needed Plan Dr. Cabezas plans to see patient morning of 08/18 Diet: NPO pending oral surgery VTE Prophylaxis: SCD, defer chemical pending surgery eval but given concerns for NSAID use/epigastric pain will avoid for now. PPI IV BID/convert to PO in AM/once no longer PO Admission and Anticipated Discharge Date Admission Date: August 16, 2024 Subjective Patient seen and evaluated at bedside. He reports some mouth pain and pain with swallowing. However, he denies any difficulty swallowing. He is well tolerating his clear liquid diet. We discussed his operative report and the current treatment plan. No additional complaints or concerns at this time. Physical Exam Physical Exam: General: No acute distress, nondiaphoretic, well-developed, well-nourished. HEENT: Right-sided facial swelling improved. Uvula midline/no stridor. Able to swallow without issue. Mouth floor swelling improved. Stitches noted from teeth extraction. Skin: The skin was warm, dry, no rash appreciated. Cardiac: Regular rate and rhythm without murmurs gallops or rubs. Pulm: Clear to auscultation bilaterally without wheezes, rales or rhonchi. No respiratory distress. 96% on room air. Abdominal: Soft, nontender, nondistended. Bowel sounds present. Neuro: A&O x3. No focal neurological deficits. Results & Data Results & Data Vital Signs (Past 12 Hours) Vital Signs Temp Pulse Resp BP Pulse Ox O2 Del Method 08/17/24 15:02 98.6 F 81 16 143/80 H 96 Room Air 08/17/24 07:46 98.8 F 84 16 126/80 92 Room Air 08/17/24 07:19 Room Air 08/17/24 07:19 98.1 F Laboratory Results Reviewed CBC Reviewed chemistries Reviewed wound culture PG Care Time/CCT Total # of Minutes Spent Total Time Spent with Patient: Total time spent is greater than 50% in coordination of care (as documented) at patient's floor/unit and/or counseling patient: Coding Level of Care Code 66151 SUB INP/OBS CARE 2/35MIN Diagnoses Dental abscess K04.7
[2024-08-18] MEDS: oxyCODONE HCL IR 5 MG TAB (IMMEDIATE RELEASE) PO PRN ×2 (01:55→11:19)
--- NOTE | 2024-08-18 07:43 | Oral/Maxillofacial Progress Nt ---
Date of Service August 18, 2024 Assessment & Plan Admission and Anticipated Discharge Date Admission Date: August 16, 2024 Subjective POST OP NOTE at 36 hours The patient did very well post operatively, infction is resolving and mouth opening is improving minimal swelling as expected. Tissue tone =healthy normal tissue No sinus or nerve complications noted Sutures in place Reviewed oral care Reviewed diet, massage, exercise and continued home/oral care Overall: Excellent healing from recent oral surgery The infected area has resolved very well. Swelling is almost gone and the tissue is back to normal in size and texture. No further drainage is noted. Infection has responded very well to the antibiotics, extractions and the I and D. I requested that the patient continue with massage, heat and wound care. At this time the area is well healed and responded well to treatment, He is OK for discharge with oral pain Meds and antibiotics Results & Data Vital Signs (Past 12 Hours) Vital Signs Temp Pulse BP Pulse Ox O2 Del Method 08/18/24 05:11 37.6 C H 08/18/24 03:00 38.2 C H 86 148/66 H 96 Room Air 08/17/24 20:35 Room Air PG Care Time/CCT Total # of Minutes Spent Total Time Spent with Patient: Total time spent is greater than 50% in coordination of care (as documented) at patient's floor/unit and/or counseling patient: Coding Level of Care Code 00532 SUB INP/OBS CARE 12/18MIN
[2024-08-18 07:54] VITALS: PULSE 92; TEMP 97.9; O2SAT 93
[2024-08-18 09:07] LABS: Hematocrit (blood only) 38.3 % (42.0-52.0); Hemoglobin 13.3 g/dl (14.0-18.0); Mean Corpuscular Hemoglobin 30.5 pg (25.0-34.0); Mean Corpuscular Hgb Conc 34.7 g/dL (32.0-36.0); Mean Corpuscular Volume 87.8 fL (80.0-100.0); Mean Platelet Volume 9.7 fL (9.4-12.4); Platelet Count 309 K/uL (130-400); RDW Coefficient of Variation 12.9 % (11.5-14.5); RDW Standard Deviation 41.5 fL (36.4-46.3); Red Blood Count 4.36 M/uL (4.70-6.10); White Blood Count 15.03 K/ul (4.8-10.8)
[2024-08-18 10:11] VITALS: BP 148/66
--- NOTE | 2024-08-18 11:08 | Discharge Summary ---
Discharge Summary Date of Service August 18, 2024 Principal Dx & Hospital Course #1 = Principal Diagnosis (1) Dental abscess: Presented to ER on 08/15 for right-sided facial pain and was discharged with Pen V and tramadol, but returned to ER on 08/16 due to increased pain/swelling. - Leukocytosis at [address] revealing 1.9 x 0.9 x 2.0 cm abscess adjacent to the right mandible and right mandibular molar. - Mouth floor cellulitis and carious teeth also present on admission. - Treated with Unasyn IV while inpatient. - Had I&D right face with 7 teeth extracted on 08/16/[address] Cabezas. - Discharged on Augmentin x 10 days, [place] PRN for breakthrough pain, and Zofran as needed for nausea. - Follow-up with Dr. Cabezas as indicated. Plan CODE STATUS: Full code Notes For Next Care Provider Patient was admitted to the hospital due to dental abscess, mouth for cellulitis, and carious teeth. He had an I&D right face with 7 teeth extracted on 08/[address] Cabezas. He was treated with Unasyn while inpatient, and discharged on Augmentin x 10 days. Given [place] and Zofran as needed for breakthrough pain and nausea respectively. Recommend PCP follow-up and follow- up with Dr. Cabezas. Medication Changes From Visit Augmentin x 10 days [place] as needed for breakthrough pain Zofran as needed for nausea Admission HPI Per Admitting Provider 44 year old male without any significant past medical history presenting with dental infection. Pain started Friday evening. Was seen in the ED morning of 08/15- started on Penicillin V and tramadol prn for pain. Took Penicillin x 2, but continued to have increased pain and swelling which prompted him to come back in. In the ED labs notable to WBC= 24. Started on Unasyn and received 2L IVF. Does note some pain with swallowing which has improved since receiving Tylenol/Toradol. Denies trouble swallowing/throat swelling. Admission Exam Per Admitting Provider Constitutional: well-appearing, no acute distress HEENT: NCAT, no conjunctival injection, some swelling right side of face, no tonsillar enlargement/throat swelling CV: regular rhythm, no murmur appreciated, extremities well-perfused, no LE edema Resp: CTABL, no wheezes/rales/rhonchi appreciated, no increased work of breathing MSK: no gross deformities appreciated Skin: warm, dry, no rash appreciated Neuro: alert, oriented, no focal neurologic deficit appreciated Discharge Exam General: No acute distress, nondiaphoretic, well-developed, well-nourished. HEENT: Right-sided facial swelling much improved. Uvula midline/no stridor. Able to swallow without issue. Mouth floor swelling much improved. Sutures noted from teeth extraction. Skin: The skin was warm, dry, no rash appreciated. Cardiac: Regular rate and rhythm without murmurs gallops or rubs. Pulm: Clear to auscultation bilaterally without wheezes, rales or rhonchi. No respiratory distress. 93% on room air. Abdominal: Soft, nontender, nondistended. Bowel sounds present. Neuro: A&O x3. No focal neurological deficits. Discharge Plan Discharge Items Patient Disposition: Home - Self-Care Reason For Visit: DENTAL ABSCESS Discharge Diagnosis: s/p acute facial infection Activity: Resume your previous activity Lifting: Gradually increase as tolerated Bathing: No limitations Exercise/Sports: As tolerated Driving/Machine Use: Resume 1 day after discharge Weightbearing: Full weightbearing Non-emergency contact: Surgeon Call non-emergency contact if: you have any medication questions, your symptoms worsen, your temperature is above 101.5, your wound has increased redness, your wound has increased drainage and your wound pain has increased Follow-up/Referrals: Danette Rivera MD [Primary Care Provider] - 08/25/24 10:00 am Joseph Cabezas DMD [Physician] - 09/02/24 2:30 pm Diet: Full liquid and Clear liquid Diet Texture: Easy to Chew Addtl Attending Provider Instructions: Mr. Johnston, You were admitted to the hospital due to dental abscess, cellulitis (soft tissue infection) of your mouth floor, and decayed teeth. You had an incision and drainage (I&D) of your right face as well as [address] Cabezas on 08/16/2024. The procedure went well with no complications. Overall, you have had excellent healing from your recent oral surgery and have responded well to treatment. Please use acetaminophen and ibuprofen as needed for pain/fever, [place] as needed for breakthrough pain, and Augmentin (oral antibiotic) for your infection. It is important to complete this course of antibiotics even if you feel better. This will prevent the infection from returning. These prescriptions have been sent to your pharmacy. Please follow the additional instructions as listed below: ADDITIONAL ACTIVITY RECOMMENDATIONS: * [place] teeth after every meal. It is very important to keep your mouth clean to prevent infection. * Starting tonight rinse with the Peridex as directed then 2 x a day * it is very important to keep well hydrated, this prevents fever and possible dry socket pain SPECIAL CARE INSTRUCTIONS: *It is not uncommon that between day 2-4 that your swelling will be at its worst this is very normal, do not be alarmed. * Keep ice on the side of your face for the next 24 to 36 hours. This will help keep the swelling down. * After 36 hours, apply heat (hot water bottle or heating pad) for the next two days, as often as possible. * Tomorrow start rinsing your mouth with 1/2 teaspoon salt in 8 ounces warm water. This rinse should be used every 4-6 hours. * You may experience slight nausea. To prevent this, never take your medication on an empty stomach. If nauseated, take small sips of johanna yelena until you feel better; then you may start on applesauce and toast. * Some swelling is common. It should gradually decrease within 4-5 days. * A certain amount of bleeding is to be expected. It is often possible to control mild oozing by placing folded gauze over the area and biting down for 30 minutes. If you are unable to control excessive bleeding, call Dr Cabezas at [phone] * You may experience some discomfort for a few days. If pain or swelling increases, Call Dr Cabezas * Return to the office for a follow up check up on: * office address--[facility] [employer] [facility] . phone # [phone] Pending Studies at Discharge: Yes Studies:: C and S results Stand-Alone Forms: My [employer], Smoking Cessation Medications and DC Order Prescriptions: Continued hydrocodone-acetaminophen 5-325 mg tablet 1 tab PO Q4H PRN (Reason: pain) Qty: 14 0RF ondansetron HCl 8 mg tablet 8 mg PO Q8H PRN (Reason: nausea and vomiting) Qty: 10 0RF amoxicillin-pot clavulanate 875-125 mg tablet 1 tab PO Q12H Qty: 20 0RF acetaminophen 500 mg Tablet 500 mg PO Q6H PRN (Reason: Pain/Fever) ibuprofen 200 mg Tablet 200 mg PO Q6H PRN (Reason: Pain/Fever) Discharge Orders: Discharge Order (Routine); Ordered 08/18/24 Ordered By: Pooja Bedolla/Other Patient Handouts: ED Cellulitis, ED Cellulitis, Facial Admission Data Admit Date/Time: 08/16/24 01:32 Attending Provider: Merlin Harper Admit Provider: Jenna Parsons Primary Care Provider: Danette Rivera Other Providers: Jose Alberto Wilson; Joseph Cabezas Other Interventions: Discharge Summary Assessment (RN) Last Done: 08/18/24 10:07 Hospital Stay Data Consultations 08/16/24 01:12 ED Decision to Admit Stat 08/16/24 01:38 Consult Oromaxillofacial Surgery Routine Procedures Performed Operation Date: 08/16/24 11:30 Actual Procedures p Incision and Drainage Right Face - Joseph Cabezas DMD s Teeth Extraction x7 - Joseph Cabezas DMD Diagnostic Imagining Performed Soft Tissue Neck CT 08/15/24 21:30 Exam(s): CT NECK With Contrast IV Amt: 94ml EXAM: CT Neck With Intravenous Contrast CLINICAL HISTORY: Reason for exam: Eval for dental infection/facial edema. TECHNIQUE: Axial computed tomography images of the neck with intravenous contrast. Automated exposure control was utilized for the study. A dose lowering technique was utilized adhering to the principles of ALARA. CONTRAST: Patient received 94ml of IV contrast COMPARISON: CT cervical spine: 12/14/2022 FINDINGS: Oropharynx: Unremarkable. No significant tonsillar enlargement. No peritonsillar abscess. Hypopharynx: Unremarkable. Larynx: Unremarkable. Normal epiglottis. Trachea: Unremarkable. Retropharyngeal space: Unremarkable. Submandibular/parotid glands: Unremarkable. Glands are normal in size. Thyroid: Unremarkable. No enlarged or calcified nodules. Bones/joints: No acute fracture. Soft tissues: Unremarkable. Vasculature: No acute findings. Lymph nodes: There are several mildly enlarged right anterior cervical lymph nodes. Dental: There is a 1.9 x 0.9 x 2.0 cm abscess adjacent to the right mandible and right mandibular molars. The abscess collection is both medial and lateral to the right mandible. Lung apices: Unremarkable as visualized. IMPRESSION: There is a small 1.9 x 0.9 x 2.0 cm abscess adjacent to the right mandible and right mandibular molars. The abscess collection is both medial and lateral to the right mandible. Electronically signed by: Aden Meyer MD 08/16/24 01:01 AM Pending Results Patient Have Any Pending Studies at Discharge: Yes Discharge Instructions Given to Patient (Per Discharging Provider) Mr. Johnston, You were admitted to the hospital due to dental abscess, cellulitis (soft tissue infection) of your mouth floor, and decayed teeth. You had an incision and drainage (I&D) of your right face as well as [address] Cabezas on 08/16/2024. The procedure went well with no complications. Overall, you have had excellent healing from your recent oral surgery and have responded well to treatment. Please use acetaminophen and ibuprofen as needed for pain/fever, [place] as needed for breakthrough pain, and Augmentin (oral antibiotic) for your infection. It is important to complete this course of antibiotics even if you feel better. This will prevent the infection from returning. These prescriptions have been sent to your pharmacy. Please follow the additional instructions as listed below: ADDITIONAL ACTIVITY RECOMMENDATIONS: * [place] teeth after every meal. It is very important to keep your mouth clean to prevent infection. * Starting tonight rinse with the Peridex as directed then 2 x a day * it is very important to keep well hydrated, this prevents fever and possible dry socket pain SPECIAL CARE INSTRUCTIONS: *It is not uncommon that between day 2-4 that your swelling will be at its worst this is very normal, do not be alarmed. * Keep ice on the side of your face for the next 24 to 36 hours. This will help keep the swelling down. * After 36 hours, apply heat (hot water bottle or heating pad) for the next two days, as often as possible. * Tomorrow start rinsing your mouth with 1/2 teaspoon salt in 8 ounces warm water. This rinse should be used every 4-6 hours. * You may experience slight nausea. To prevent this, never take your medication on an empty stomach. If nauseated, take small sips of johanna yelena until you feel better; then you may start on applesauce and toast. * Some swelling is common. It should gradually decrease within 4-5 days. * A certain amount of bleeding is to be expected. It is often possible to control mild oozing by placing folded gauze over the area and biting down for 30 minutes. If you are unable to control excessive bleeding, call Dr Cabezas at [phone] * You may experience some discomfort for a few days. If pain or swelling increases, Call Dr Cabezas * Return to the office for a follow up check up on: * office address--[employer] . phone # [phone] Total Time Total Time Spent Total Time Spent (In Minutes): Greater than 30 minutes spent completing this discharge process including direct patient care, medication reconciliation, documentation, review of labs and images, and coordination of care. Coding Level of Care Code 01884 INP/OBS DISCH >30 MIN Diagnoses Dental abscess K04.7
--- NOTE | 2024-08-18 22:17 | Operative Report ---
PG Post Operative Report Pre & Post Diagnosis Operation Date: 08/16/24 11:30 Pre-Op Diagnosis: Dental abscess, pain, dental, cellulitis-mouth floor, right side facial infection, carious teeth Post-Op Diagnosis: Dental abscess, pain, dental, cellulitis-mouth floor, right side facial infection, carious teeth I identified the patient and participated in the time-out.: Yes Procedure Operation Date: 08/16/24 11:30 Actual Procedures p Incision and Drainage Right Face - Joseph Cabezas DMD s Teeth Extraction x7 - Joseph Cabezas DMD Surgeon Joseph Cabezas DMD Superintendent Overhead Distribution none Estimated Blood Loss 5 Findings Consistent with Post-Op Diagnosis Specimens C&S lower right side Drains none Anesthesia Type General Complications none Disposition Accompanied Patient To Recovery: Yes Indications infection and carious teeth Description of Procedure Actual Procedures p Incision and Drainage Submandibular Abscess, right superficial temporal space and Removal of Tooth 1,2,15,16,19,31 (Not Applicable) - Joseph Cabezas DMD L03.211 M27.2 K04.7 CPT 41229 CPT 51067 Once cleared for surgery general anesthesia was achieved, the eyes were protected by the anesthesia dept criteria. A time out was take for patient ID, antibiotics, equipment and position verification once all agreed the procedure began. Local anesthesia using Marcaine with a vasoconstrictor ( 1.8 ml per site) given into right, left inferior alveolar nerve and upper right and left posterior maxilla. A throat pack was placed after the oral cavity was irrigated with saline. Once a surgical level of anesthesia was obtained and the local anesthesia was given time for the blocks the surgery was started. I turned my attention to the infection which was located in the floor of the mouth and submandibular area right and supratemporal area upper right. The tongue was elevated and there was also swelling associated with tooth # 31 and19 ( see CT scan report) Incision and Drainage right side of the face Floor of the mouth CPT 67379 M27.2 Temporal space CPT 12103 L03.211 Using a 15 blade an incision was made medial to the alveolar ridge and lateral to the duct of the submandibular gland. Once the incision was made a lot of pus extruded from the site. This drainage was cultured for anaerobic and aerobic bacteria. A curved hemostat was carefully placed into the infected space along the medial side of the lower jaw and into the submental space. I also was able to drain the submandibular space and masseter space as well. Some further drainage was now allowed to escape. I palpated the chin and submental area and no further drainage was expressed. The area was irrigated with at least 100 ml of NS solution. To drain the supratemporal space an incision was made in the tuberosity area lateral to tooth # 1. the hemostat was introduced superior into the temporal space to allow drainage of this space. I palpated the side of the head in the temporal l area and no further drainage was expressed. The area was irrigated with at least 100 ml of NS solution. I now turned my attention to remove the extractions. REMOVAL OF TEETH # 1,2,31 D7140 x 3 The following teeth were associated with the right side facial infection Teeth # 1,2 and 31 The flap was reflected to expose the the subperiosteal space the bone adjacent to teeth 1,2 and 31. The rogues was used to remove bone, the teeth were removed with a 301 elevator and dental forceps, the mental nerve was intact, there was a large amount of granulation tissue on the apex and some more pus that was expressed upon extracting these 3 teeth. The teeth were all simple extraction D7140 x 3 for 1,2,31 Closure was obtained with a 2-0 chromic REMOVAL OF TEETH # 15,16 19 D7140 x 3 I now turned my attention to the left side were the following teeth were removed. # 15,16 and 19 There teeth were simple extractions and were removed with a dental forceps \ I inspected the sites to insure all bleeding was controlled. I removed the throat pack and suctioned the throat. Bilateral gauze pressure dressings were placed. All instrument and sponge count was correct. The patient was allowed to awake from the anesthesia. Once full awake the anesthesia tube was removed and the patient was taken to the recovery room with all vital sign stable. The patient tolerated the surgery very well. I will follow the patient in my office, Rx and instructions will be given upon discharge. I attest to the content of the Intraoperative Record and any orders documented therein. Any exceptions are noted below.
== END 2024-08-18 11:41 | disposition home or self-care (01) | DRG 138 ==
LOC: ED 21:09 → SUATTDRO 08-16 01:32 → 3W 08-16 01:32